=== PATIENT | male | born 1985 | race Two or more races ===

== ENCOUNTER 2024-05-13 16:37 | Emergency (ER) | payer MEDICAID, OTHER ==
[~2024-05-13] VITALS: Ht 185.4 cm; Wt 84.0 kg
[2024-05-13 18:05] VITALS: BP 124/80; TEMP 99.6
[2024-05-13] MEDS: HYDROcodone-ACET 10/325MG TAB PO ONE (18:05)
[2024-05-13 18:23] VITALS: PULSE 90; RESP 16; O2SAT 98
[2024-05-13] MEDS ORDERED: HYDR-4798 PO (19:11)
[2024-05-13] MEDS ORDERED: IBUP-1455 PO (19:11)
== END 2024-05-13 19:47 | disposition home or self-care (01) ==
LOC: ER 16:37
DX: S39.012A Strain of muscle, fascia and tendon of lower back, initial encounter (principal); G89.18 Other acute postprocedural pain; X50.0XXA Overexertion from strenuous movement or load, initial encounter; Y93.89 Activity, other specified; Y92.89 Other specified places as the place of occurrence of the external cause; Y99.8 Other external cause status
CPT/HCPCS: 72100

== ENCOUNTER 2024-11-07 07:47 | Emergency (ER) | payer MEDICAID ==
[~2024-11-07] VITALS: Ht 185.4 cm; Wt 105.4 kg
[~2024-11-07 07:47] MED LIST: HYDR-4798 PO; IBUP-1455 PO
[2024-11-07 08:13] VITALS: BP 138/88; PULSE 88; RESP 18; TEMP 98.1; O2SAT 98
--- NOTE | 2024-11-07 08:31 | ED.PDOC ---
Back pain HPI HPI Comments 38-year-old male with a history of three herniated disc (injury was three years ago) presents with a chief complaint of a flare-up located to the lower back and radiates down the bilateral posterior lower extremities. Symptoms are aggravated with ambulation and improves at rest. 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 States he does a lot more movement that aggravate the back. Patient's PCP is Faith Morrison and also sees pain management Dr. Fred Oakley. Patient had a epidural injection two months ago with minimal improvement. He also takes 300 mg of gabapentin with improvement Denies history of chronic steroid use or history of osteoporosis Denies any history of cancer Denies fevers chills night sweats nausea vomiting unintentional weight loss Denies IV drug use history of HIV/TB Denies abdominal "tearing" pain Denies syncope Denies urinary incontinence or urinary changes Denies numbness tingling of the groin or inner thigh Chief Complaint: Back Pain Time Seen by MD: 08:04 Reviewed Notes: Nurses Notes, Medications, Allergies Allergies: Coded Allergies: NO KNOWN ALLERGIES (Unverified , 05/13/24) Home Meds Active Scripts Ibuprofen Micronized (Ibuprofen) 800 Mg Tab, 800 MG PO Q8HP PRN, #20 TAB Prov:FERNANDA MATHEWS PAC 05/13/24 Hydrocodone-Acetaminophen (Hydrocodone Bitartrate/AC 10-325 mg) 1 Tab Tab, 1 TAB PO Q8HP PRN, #15 TAB Prov:FERNANDA MATHEWS PAC 05/13/24 Information Source: Patient Mode of Arrival: Ambulatory Past Medical History PAST MEDICAL HISTORY: Denies Surgical History: Denies all surgeries Family History Family History: Reviewed,noncontributory to illness, No family hx of Cancer, No family hx of DM, No family hx of Heart randi, No family hx of HTN, No family hx ofKidney randi, No family hx of Liver randi, No family hx of Lung randi, No family hx of Stroke Social History Smoker: Non-Smoker Alcohol: Denies ETOH Use Drugs: Denies Drug Use Lives In: Home All Other Systems: Reviewed and Negative (Per HPI) Physical Exam General Appearance: No Apparent Distress, Normal HEENT: Normal ENT Inspection, Pharynx Normal, TMs Normal Neck: Full Range of Motion, Non-Tender, Normal, Normal Inspection Respiratory: Chest Non-Tender, Lungs Clear, No Accessory Muscle Use, No Respiratory Distress, Normal Breath Sounds Cardiovascular: No Murmur, No Gallop, Regular Rate/Rhythm Breast Exam: Deferred Gastrointestinal: No Organomegaly, Non Tender, No Pulsatile Mass, Normal Bowel Sounds, Soft Genitalia: Deferred Pelvic: Deferred Rectal: Deferred Extremities: No calf tenderness, Normal capillary refill, Normal inspection, Normal range of motion, Non-tender, No pedal edema Musculoskeletal : Apperance: Normal Neurologic: Alert, No Motor Deficits, Normal Affect, Normal Mood, No Sensory Deficits Cerebellar Function: Normal Reflexes: Normal Skin: Dry, Normal Color, Warm Lymphatic: No Adenopathy Was a procedure done? Was a procedure done?: No Images 1 - No gross abnormality on inspection. Localized TTP. Pain with lateral movements forward flexion. Distal neuro sensation intact Back Pain Differential Dx Differential Diagnosis: Musculoskeletal Pain X-Ray, Labs, Meds, VS Vital Signs Date Time Temp Pulse Resp B/P (MAP) Pulse Ox O2 Delivery O2 Flow Rate FiO2 11/07/24 08:13 98.1 88 18 138/88 (105) 98 98.1 11/07/24 08:13 88 18 98 Room Air 11/07/24 07:53 98.0 89 18 138/87 (104) 98 Current Medications Medications (Trade) Dose Ordered Sig/Froilan Route Start Time Stop Time Status Last Admin Acetaminophen/ Hydrocodone Bitart ([place] 10/325MG Tab) 1 tab ONCE ONCE PO 11/07/24 08:30 11/07/24 09:01 DC 11/07/24 09:04 Methylprednisolone Sodium Succinate (Solu Medrol) 125 mg ONCE ONCE IM 11/07/24 08:30 11/07/24 09:01 DC 11/07/24 09:05 X-Ray, Labs, Meds, VS Comment Signs and symptoms suggest mechanical back pain. The episode appears to be exacerbated by movements. The patient's motor strength and DTR's are currently intact. There are no signs or symptoms of cauda equina or cord compression at this time. No evidence of fracture on Xray. Differential diagnoses include muscle strain versus arthralgia versus radicular/disk disease. The differential for an acute vascular, neurologic, malignant, or infectious etiologies is much less likely given his presentation. Patient able to ambulate. The patient will follow up with his PCP to see if their symptoms jerrica. The patient was counseled in regards to the diagnosis and management of their condition and verbalized understanding of this. The patient understands to go to the ED or seek immediate medical attention if the symptoms worsen or return. Time of 1ST Reevaluation: 09:31 Reevaluation 1ST: Improved Patient Education/Counseling: Diagnosis, Treatment Family Education/Counseling: Diagnosis, Treatment Departure 1 Departure Time of Disposition: 09:34 Impression: Primary Impression: Low back strain Qualified Codes: S39.012A - Strain of muscle, fascia and tendon of lower back, initial encounter Disposition: HOME / SELF CARE / HOMELESS Condition: Stable e-Prescriptions Tramadol Hcl (Tramadol Hcl) 50 Mg Tab 50 MG PO Q8HP PRN for 5 Days, #15 TAB 0 Refills Prov: MELBA SAHU NP 11/07/24 Critical Care Note Critical Care Time?: No Stability Stability form required: No Heart Score Heart Score: Heart Score Response (Comments) Value History N/A 0 EKG N/A 0 Age N/A 0 Risk Factors N/A 0 Troponin N/A 0 Total 0 MELBA SAHU NP Nov 07, 2024 08:31
--- NOTE | 2024-11-07 09:03 | DVH ---
INDICATION: chx back pain COMPARISON: None TECHNIQUE: 3 views of the lumbar spine were obtained. FINDINGS: The lumbar vertebral alignment is normal. The intervertebral disc spaces are well-maintained. No significant facet arthropathy is noted. No acute fracture, vertebral compression deformity or aggressive osseous lesions. The paravertebral soft tissues are grossly unremarkable. IMPRESSION: No acute fracture.
[2024-11-07] MEDS: HYDROcodone-ACET 10/325MG TAB PO ONE (09:04)
[2024-11-07] MEDS: methylPREDNISolone SOD SUCC 125 MG/2 ML VL IM ONE (09:05)
[2024-11-07] MEDS ORDERED: TRAM50TA2 PO (09:35)
== END 2024-11-07 09:42 | disposition home or self-care (01) ==
LOC: ER 07:47
DX: S39.012A Strain of muscle, fascia and tendon of lower back, initial encounter (principal); Z79.899 Other long term (current) drug therapy; X58.XXXA Exposure to other specified factors, initial encounter; Y93.89 Activity, other specified; Y92.89 Other specified places as the place of occurrence of the external cause; Y99.8 Other external cause status
CPT/HCPCS: 72100; 96372; 99283; J2919

== ENCOUNTER 2024-12-24 13:44 | Emergency (ER) | payer MEDICAID ==
[~2024-12-24] VITALS: Ht 185.4 cm; Wt 99.2 kg
[~2024-12-24 13:44] MED LIST changes: +TRAM50TA2 PO
[2024-12-24] MEDS ORDERED: MUPI2CRE17 EX (15:21)
[2024-12-24] MEDS ORDERED: CLIN1CAP70 PO (15:21)
--- NOTE | 2024-12-24 15:24 | ED.PDOC ---
History of Present Illness(SKN HPI Comments 39 y.o male presents to the ED for an evaluation of a wound check. Patient reports developing a patch of erythema and swelling to the right posterior scalp region 2-3 days ago that is now associated with a generalized headache. Patient denies any fever, chills, bleeding or discharge from wound site. Patient also denies any recent head trauma. Chief Complaint: Rash Time Seen by MD: 15:16 Primary Care Provider: JOHN History of Present Illness: Nurses Notes, Medications, Allergies Allergies: Coded Allergies: NO KNOWN ALLERGIES (Unverified , 05/13/24) Home Meds Active Scripts Mupirocin Calcium (Topical) (MUPIROCIN) 2 % Cre, 2 % EX BID for 10 Days, #1 EA Prov:VICENTE HUSTON MD 12/24/24 Clindamycin Hcl (Clindamycin Hcl) 300 Mg Cap, 1 CAP PO BID for 10 Days, #20 CAP Prov:VICENTE HUSTON MD 12/24/24 Tramadol Hcl (Tramadol Hcl) 50 Mg Tab, 50 MG PO Q8HP PRN for 5 Days, #15 TAB 0 Refills Prov:MELBA SAHU SPINNER OPERATOR 11/07/24 Ibuprofen Micronized (Ibuprofen) 800 Mg Tab, 800 MG PO Q8HP PRN, #20 TAB Prov:FERNANDA MATHEWS PAC 05/13/24 Hydrocodone-Acetaminophen (Hydrocodone Bitartrate/AC 10-325 mg) 1 Tab Tab, 1 TAB PO Q8HP PRN, #15 TAB Prov:FERNANDA MATHEWS PAC 05/13/24 Information Source: Patient Mode of Arrival: cane Severity: Moderate Timing: Days Duration: Since onset Location: Head Mechanism: Spontaneous Onset Object: None Wound Type: Other History of: None Associated Signs and Symptoms: Redness, Swelling Past Medical History PAST MEDICAL HISTORY: Denies Surgical History: Denies all surgeries Family History Family History: Reviewed,noncontributory to illness, No family hx of Cancer, No family hx of DM, No family hx of Heart randi, No family hx of HTN, No family hx ofKidney randi, No family hx of Liver randi, No family hx of Lung randi, No family hx of Stroke Social History Smoker: Non-Smoker Alcohol: Denies ETOH Use Drugs: Denies Drug Use Lives In: Home Constitutional: denies: chills, diaphoresis, fatigue, fever, malaise, sweats, weakness, others EENTM: denies: blurred vision, double vision, ear bleeding, ear discharge, ear drainage, ear pain, ear ringing, eye pain, eye redness, hearing loss, mouth pain, mouth swelling, nasal discharge, nose bleeding, nose congestion, nose pain, photophobia, tearing, throat pain, throat swelling, voice changes, others Respiratory: denies: cough, hemoptysis, orthopnea, SOB at rest, shortness of breath, SOB with excertion, stridor, wheezing, others Cardiovascular: denies: chest pain, dizzy spells, diaphoresis, Dyspnea on exertion, edema, irregular heart beat, left arm pain, lightheadedness, palpitations, PND, syncope, others Gastrointestinal: denies: abdomen distended, abdominal pain, blood streaked bowels, constipated, diarrhea, dysphagia, difficulty swallowing, hematemesis, melena, nausea, poor appetite, poor fluid intake, rectal bleeding, rectal pain, vomiting, others Genitourinary: denies: burning, dysuria, flank pain, frequency, hematuria, incontinence, penile discharge, penile sore, pain, testicle pain, testicle swelling, urgency, others Neurological: reports: headache; denies: dizziness, fainting, left sided numbness, left sided weakness, numbness, paresthesia, pre-existing deficit, right sided numbness, right sided weakness, seizure, speech problems, tingling, tremors, weakness, others Musculoskeletal: denies: back pain, gout, joint pain, joint swelling, muscle pain, muscle stiffness, neck pain, others Integumetry: reports: others (right sided posterior head erythema and swelling ); denies: bruises, change in color, change in hair/nails, dryness, laceration, lesions, lumps, rash, wounds Allergic/Immunocompromised: denies: Difficulty Healing, Frequent Infections, Hives, Itching, others Hematologic/Lymphatic: denies: anemia, blood clots, easy bleeding, easy bruising, swollen glands, others Endocrine: denies: excessive hunger, excessive sweating, excessive thirst, excessive urination, flushing, intolerance to cold, intolerance to heat, unexplained weight gain, unexplained weight loss, others Psychiatric: denies: anxiety, bipolar disorder, depression, hopeless, panic d isorder, schizophrenia, sleepless, suicidal, others All Other Systems: Reviewed and Negative Physical Exam General Appearance: No Apparent Distress, Normal HEENT: Normal ENT Inspection, Pharynx Normal, TMs Normal Neck: Other (rigth sided cervical, one lymph node swelling ) Respiratory: Chest Non-Tender, Lungs Clear, No Accessory Muscle Use, No Respiratory Distress, Normal Breath Sounds Cardiovascular: No Edema, No JVD, No Murmur, No Gallop, Normal Peripheral Pulses, Regular Rate/Rhythm Breast Exam: Deferred Gastrointestinal: No Organomegaly, Non Tender, No Pulsatile Mass, Normal Bowel Sounds, Soft Genitalia: Deferred Pelvic: Deferred Rectal: Deferred Extremities: No calf tenderness, Normal capillary refill, Normal inspection, Normal range of motion, Non-tender, No pedal edema Musculoskeletal : Apperance: Normal Neurologic: Alert, ambulance assistant II-XII nml as Tested, No Motor Deficits, Normal Affect, Normal Mood, No Sensory Deficits Cerebellar Function: Normal Reflexes: Normal Skin: Wounds (erythema and swelling to the right posterior scalp) Lymphatic: No Adenopathy Was a procedure done? Was a procedure done?: No Differential Diagnosis (INTG) Differential Diagnosis: Abrasion, Cellulitis, Puncture Wound X-Ray, Labs, Meds, VS Vital Signs Date Time Temp Pulse Resp B/P (MAP) Pulse Ox O2 Delivery O2 Flow Rate FiO2 12/24/24 15:53 97.6 87 20 138/67 (90) 99 97.6 12/24/24 15:53 87 20 12/24/24 13:47 99.2 94 20 142/92 (109) 98 99.2 Current Medications Medications (Trade) Dose Ordered Sig/Froilan Route Start Time Stop Time Status Last Admin Clindamycin HCl (Cleocin Capsule) 300 mg ONCE ONCE PO 12/24/24 15:30 12/24/24 15:31 DC 12/24/24 15:50 Time of 1ST Reevaluation: 15:20 Reevaluation 1ST: Unchanged Patient Education/Counseling: Diagnosis, Treatment, Prognosis Family Education/Counseling: No Family Present Departure 1 Departure Time of Disposition: 16:30 Impression: Primary Impression: Cellulitis of occipital region of scalp Disposition: 01 HOME / SELF CARE / HOMELESS Condition: Stable e-Prescriptions Mupirocin Calcium (Topical) (MUPIROCIN) 2 % Cre 2 % EX BID for 10 Days, #1 EA Prov: VICENTE HUSTON MD 12/24/24 Clindamycin Hcl (Clindamycin Hcl) 300 Mg Cap 1 CAP PO BID for 10 Days, #20 CAP Prov: VICENTE HUSTON MD 12/24/24 Discharged With: Self Critical Care Note Critical Care Time?: No Stability Stability form required: No I personally scribed for VICENTE HUSTON MD ([email or web address]) on 12/24/24 at 15:24. Electronically submitted by Cat Voss ([facility]). VICENTE HUSTON MD Dec 24, 2024 15:24
[2024-12-24] MEDS: CLINDAMYCIN HCL 150 MG CAP PO ONE (15:50)
[2024-12-24 15:53] VITALS: BP 138/67; PULSE 87; RESP 20; TEMP 97.6; O2SAT 99
== END 2024-12-24 15:56 | disposition home or self-care (01) ==
LOC: ER 13:44
DX: L03.811 Cellulitis of head [any part, except face] (principal); Z79.899 Other long term (current) drug therapy

== ENCOUNTER 2025-05-10 14:58 | Inpatient (IN) | payer MEDICAID ==
[~2025-05-10] VITALS: Ht 185.4 cm; Wt 111.2 kg
[~2025-05-10 14:58] MED LIST changes: +CLIN1CAP70 PO; +MUPI2CRE17 EX
--- NOTE | 2025-05-10 15:57 | ED.PDOC ---
GI ASSESSMENT HPI Comments This is a morbidly obese 39 year old male presenting to the ED with chief complaint of significant rectal pain for the past few days.. Patient reports that he had sudden explosive diarrhea 2 days ago then soon after followed up with associated right sided rectal pain and subjective fever. Patient relays that his rectum and surrounding areas are still exquisitely tender. Patient notes he walks with a walker due to chronic back pain. Patient denies any N/V, abdominal pain, chills, or rectal bleeding. Patient was hypertensive, tachycardic and had an elevated temperature at arrival. Chief Complaint: Rectal Pain Time Seen by MD: 15:49 Primary Care Provider: JOHN Ferraro Notes: Nurses Notes, Medications, Allergies Allergies: Coded Allergies: NO KNOWN ALLERGIES (Unverified , 05/13/24) Home Meds Active Scripts Mupirocin Calcium (Topical) (MUPIROCIN) 2 % Cre, 2 % EX BID for 10 Days, #1 EA Prov:VICENTE HUSTON MD 12/24/24 Clindamycin Hcl (Clindamycin Hcl) 300 Mg Cap, 1 CAP PO BID for 10 Days, #20 CAP Prov:VICENTE HUSTON MD 12/24/24 Tramadol Hcl (Tramadol Hcl) 50 Mg Tab, 50 MG PO Q8HP PRN for 5 Days, #15 TAB 0 Refills Prov:MELBA SAHU MITER OPERATOR 11/07/24 Ibuprofen Micronized (Ibuprofen) 800 Mg Tab, 800 MG PO Q8HP PRN, #20 TAB Prov:FERNANDA MATHEWS PAC 05/13/24 Hydrocodone-Acetaminophen (Hydrocodone Bitartrate/AC 10-325 mg) 1 Tab Tab, 1 TAB PO Q8HP PRN, #15 TAB Prov:FERNANDA MATHEWS PAC 05/13/24 Information Source: Patient Mode of Arrival: Wheelchair Timing: Days Duration: Since onset Prehospital treatment: None Quality: Aching Vomitus: None Stool: Loose Severity: Severe Recent: None Recent Hx of: None Pain Location: Other (Left-sided rectum and gluteal region) Modifying Factors: Nothing Associated sign and symptoms: Diarrhea Past Medical History PAST MEDICAL HISTORY: Denies Surgical History: Denies all surgeries Surgical History (Other): Patient ambulates with a walker Family History Family History: Reviewed,noncontributory to illness, No family hx of Cancer, No family hx of DM, No family hx of Heart randi, No family hx of HTN, No family hx ofKidney randi, No family hx of Liver randi, No family hx of Lung randi, No family hx of Stroke Social History Smoker: Non-Smoker Alcohol: Denies ETOH Use Drugs: Denies Drug Use Lives In: Home Constitutional: denies: chills, diaphoresis, fatigue, fever, malaise, sweats, weakness, others EENTM: denies: blurred vision, double vision, ear bleeding, ear discharge, ear drainage, ear pain, ear ringing, eye pain, eye redness, hearing loss, mouth pain, mouth swelling, nasal discharge, nose bleeding, nose congestion, nose pain, photophobia, tearing, throat pain, throat swelling, voice changes, others Respiratory: denies: cough, hemoptysis, orthopnea, SOB at rest, shortness of breath, SOB with excertion, stridor, wheezing, others Cardiovascular: denies: chest pain, dizzy spells, diaphoresis, Dyspnea on exertion, edema, irregular heart beat, left arm pain, lightheadedness, palpitations, PND, syncope, others Gastrointestinal: reports: diarrhea, rectal pain; denies: abdomen distended, abdominal pain, blood streaked bowels, constipated, dysphagia, difficulty swallowing, hematemesis, melena, nausea, poor appetite, poor fluid intake, rectal bleeding, vomiting, others Genitourinary: denies: burning, dysuria, flank pain, frequency, hematuria, incontinence, penile discharge, penile sore, pain, testicle pain, testicle swelling, urgency, others Neurological: denies: dizziness, fainting, headache, left sided numbness, left sided weakness, numbness, paresthesia, pre-existing deficit, right sided numbness, right sided weakness, seizure, speech problems, tingling, tremors, weakness, others Musculoskeletal: denies: back pain, gout, joint pain, joint swelling, muscle pain, muscle stiffness, neck pain, others Integumetry: denies: bruises, change in color, change in hair/nails, dryness, laceration, lesions, lumps, rash, wounds, others Allergic/Immunocompromised: denies: Difficulty Healing, Frequent Infections, Hives, Itching, others Hematologic/Lymphatic: denies: anemia, blood clots, easy bleeding, easy bruising, swollen glands, others Endocrine: denies: excessive hunger, excessive sweating, excessive thirst, excessive urination, flushing, intolerance to cold, intolerance to heat, unexplained weight gain, unexplained weight loss, others Psychiatric: denies: anxiety, bipolar disorder, depression, hopeless, panic disorder, schizophrenia, sleepless, suicidal, others All Other Systems: Reviewed and Negative Physical Exam General Appearance: Moderate Distress (Moderate distress due to rectal and gluteal pain) HEENT: Normal ENT Inspection, Pharynx Normal, TMs Normal Neck: Full Range of Motion, Non-Tender, Normal, Normal Inspection Respiratory: Chest Non-Tender, Lungs Clear, No Accessory Muscle Use, No Resp iratory Distress, Normal Breath Sounds Cardiovascular: No Edema, No JVD, No Murmur, No Gallop, Normal Peripheral Pulses, Regular Rate/Rhythm Breast Exam: Deferred Gastrointestinal: No Organomegaly, Non Tender, No Pulsatile Mass, Normal Bowel Sounds, Soft Genitalia: Deferred Pelvic: Deferred Rectal: Other (Patient has a large crescent shaped area of induration to the left-sided gluteal region near the rectum. Exquisitely tender to palpation throughout. Localized erythema. 0 points of drainage or discharge.) Extremities: No calf tenderness, Normal capillary refill, Normal inspection, Normal range of motion, Non-tender, No pedal edema Musculoskeletal : Apperance: Normal Neurologic: Alert, No Motor Deficits, Normal Affect, Normal Mood, No Sensory Deficits Cerebellar Function: NOT DONE Reflexes: NOT DONE Skin: Dry, Normal Color, Warm Lymphatic: No Adenopathy Was a procedure done? Was a procedure done?: No GI differential Dx Differential Diagnosis: Other (Abscess, phlegmon, cellulitis, hemorrhoids) X-Ray, Labs, Meds, VS Vital Signs Date Time Temp Pulse Resp B/P (MAP) Pulse Ox O2 Delivery O2 Flow Rate FiO2 05/10/25 17:08 98.1 102 16 114/57 (76) 98 98.1 05/10/25 17:04 102 16 114/57 05/10/25 16:16 110 19 123/81 05/10/25 16:10 98.6 110 19 123/81 (95) 98 98.6 05/10/25 16:10 110 19 98 Room Air 05/10/25 15:00 99.8 120 18 148/86 99 99.8 Lab Test 05/10/25 15:56 Range/Units White Blood Count 11.5 H 4.4-10.8 10^3/uL Red Blood Count 4.93 4.5-5.90 10^6/uL Hemoglobin 14.9 13.5-17.5 g/dL Hematocrit 42.7 41.0-53.0 % Mean Corpuscular Volume 86.5 80.0-100.0 fL Mean Corpuscular Hemoglobin 30.3 28.0-32.0 pg Mean Corpuscular Hemoglobin Concent 35.0 32.0-36.0 g/dL Red Cell Distribution Width 14.3 11.8-14.3 % Platelet Count 228 140-450 10^3/uL Mean Platelet Volume 8.5 6.9-10.8 fL Neutrophils (%) (Auto) 76.8 37.0-80.0 % Lymphocytes (%) (Auto) 13.8 10.0-50.0 % Monocytes (%) (Auto) 8.6 0.0-12.0 % Eosinophils (%) (Auto) 0.3 0.0-7.0 % Basophils (%) (Auto) 0.5 0.0-2.0 % Neutrophils # (Auto) 8.9 H 1.6-8.6 10 ^3/uL Lymphocytes # (Auto) 1.6 0.4-5.4 10 ^3/uL Monocytes # (Auto) 1.0 0-1.3 10 ^3/uL Eosinophils # (Auto) 0 0-0.8 10 ^3/uL Basophils # (Auto) 0.1 0-0.2 10 ^3/uL Nucleated Red Blood Cells 0.0 % Sodium Level 139 136-145 mmol/L Potassium Level 3.5 3.5-5.1 mmol/L Chloride Level 106 98-107 mmol/L Carbon Dioxide Level 23 20-31 mmol/L Anion Gap 10 5-15 Blood Urea Nitrogen 7 L 9-23 mg/dL Creatinine 0.85 0.700-1.30 mg/dL Glomerular Filtration Rate Calc 113 >90 mL/min BUN/Creatinine Ratio 8.2 L 10.0-20.0 Serum Glucose 100 74-106 mg/dL Calcium Level 9.4 8.7-10.4 mg/dL Current Medications Medications (Trade) Dose Ordered Sig/F[place]ilan Route Start Time Stop Time Status Last Admin Hydromorphone HCl (Dilaudid Injection) 0.5 mg ONCE ONCE IV 05/10/25 15:45 05/10/25 15:46 DC 05/10/25 16:16 Ondansetron HCl (Zofran) 4 mg ONCE ONCE IV 05/10/25 15:45 05/10/25 15:46 DC 05/10/25 16:15 X-Ray, Labs, Meds, VS Comment All studies performed the ED were evaluated by me personally. While serum laboratories were relatively unremarkable for any acute concerns. CT with contrast of the abdomen and pelvis revealed a localized inflammation of the left perianal region suggestive of a phlegmon. No definitive abscess is identified. Due to the exquisite tenderness and size of the area of induration, patient will be admitted for pain management and IV antibiotics to stave off any significant abscess formation. Time of 1ST Reevaluation: 19:40 Reevaluation 1ST: Improved Consultation: PCP Patient Education/Counseling: Diagnosis, Treatment Family Education/Counseling: Diagnosis, Treatment, No Family Present SEPSIS Sepsis Screen Date sepsis recognized/suspect: May 10, 2025 Time Sepsis recognized/suspect: 1501 Recent Procedure: No On Antibiotic Therapy: No Respiratory Rate >20: No Heart Rate >90: Yes Temp<36 C (96.8 F) or >38.3 C: No SBP <90 or MAP <65 mmHG: No New Acute Mental Status Change: No Is the patient on CPAP, BIPAP,: No Physician Orders Ct Ab Pel With Iv Con Only (05/10/25 15:31) Heplock Iv (05/10/25 ) Zosyn Extended Infusion (05/10/25 19:45) Vital Signs Date Time Temp Pulse Resp B/P (MAP) Pulse Ox O2 Delivery O2 Flow Rate FiO2 05/10/25 17:08 98.1 102 16 114/57 (76) 98 98.1 05/10/25 17:04 102 16 114/57 05/10/25 16:16 110 19 123/81 05/10/25 16:10 98.6 110 19 123/81 (95) 98 98.6 05/10/25 16:10 110 19 98 Room Air 05/10/25 15:00 99.8 120 18 148/86 99 99.8 Laboratory Tests Test 05/10/25 15:56 White Blood Count 11.5 10^3/uL (4.4-10.8) H Medications Medications Dose Ordered Sig/Froilan Route Start Time Stop Time Status Last Admin Dose Admin Hydromorphone HCl 0.5 mg ONCE ONCE IV 05/10/25 15:45 05/10/25 15:46 DC 05/10/25 16:16 Ondansetron HCl 4 mg ONCE ONCE IV 05/10/25 15:45 05/10/25 15:46 DC 05/10/25 16:15 Departure 1 Departure Time of Disposition: 19:41 Impression: Primary Impression: Phlegmon Disposition: ADMITTED INPATIENT Condition: Fair Discharged With: Self, Spouse Critical Care Note Critical Care Time?: No Stability Stability form required: No Heart Score Heart Score: Heart Score Response (Comments) Value History N/A 0 EKG N/A 0 Age N/A 0 Risk Factors N/A 0 Troponin N/A 0 Total 0 I personally scribed for FERNANDA MATHEWS PAC ([email or web address]) on 05/10/25 at 15:57. Electronically submitted by Chun Aguilera ([email or web address]). FERNANDA MATHEWS PAC May 10, 2025 15:57
[2025-05-10] MEDS: ONDANSETRON HCL 4 MG/2 ML VIAL IV ONE ×2 (16:15→19:37)
[2025-05-10] MEDS: HYDROmorphone HCL 2 MG/ML VL/or syr IV ONE ×2 (16:16→19:38)
[2025-05-10 16:18] LABS: Hematocrit 42.7 % (41.0-53.0); Hemoglobin 14.9 g/dL (13.5-17.5); Mean Corpuscular Hemoglobin 30.3 pg (28.0-32.0); Mean Corpuscular Volume 86.5 fL (80.0-100.0); Nucleated Red Blood Cells % 0.0 %
[2025-05-10 16:22] LABS: Chloride 106 mmol/L (98-107); Sodium 139 mmol/L (136-145)
[2025-05-10 16:23] LABS: Anion Gap 10 (5-15); Carbon Dioxide 23 mmol/L (20-31)
[2025-05-10 16:24] LABS: Calcium 9.4 mg/dL (8.7-10.4)
[2025-05-10 16:28] LABS: BUN/Creatinine Ratio 8.2 (10.0-20.0); Glucose 100 mg/dL (74-106)
[2025-05-10 16:47] LABS: Blood Urea Nitrogen 7 mg/dL (9-23); Potassium 3.5 mmol/L (3.5-5.1)
[2025-05-10] MEDS: IOHEXOL 300 MG/ML 100ML BOTTLE IJ ONE (17:06)
--- NOTE | 2025-05-10 18:50 | DVH ---
COMPUTERIZED TOMOGRAPHY ABDOMEN AND PELVIS WITH CONTRAST REASON FOR EXAM: Abscess formation on the right gluteal region/rectum COMPARISON: None TECHNIQUE: The exam was performed on a Multidetector scanner. Spiral scans were acquired from the chaya phragm to the symphysis pubis after administration of IV contrast. 2-D coronal and sagittal reformatt ed images were provided. Radiation optimization: All CT scans at this facility use at least one of th kevin dose optimization techniques: Automated exposure control mA and/or kV adjustment per patient size (includes targeted exams where dose is matched to clinical indication) or iterative reconstruction. CONTRAST ADMINISTRATION: 85 mL omnipaque 300 intravenously RADIATION DOSE: CTDI: 20.45 mGy DLP: 1362.93 mGy-cm FINDINGS: The visualized lung bases are grossly clear. There is no pleural effusion. There is no pericardial e ffusion. The spleen is not enlarged. The liver is normal in size and contour. The hepatic veins are patent. The portal vein is patent. No calcified gallstone is identified. There is no pericholecystic edema. T he pancreas is unremarkable. The adrenal glands are normal. The kidneys enhance symmetrically. There is no solid renal mass. There is no hydronephrosis of either kidney. There is no abdominal aortic ane urysm. No pathologic lymphadenopathy is identified by size criteria. There is no free fluid in the a bdomen or pelvis. The prostate is enlarged. The urinary bladder is unremarkable. There is no signifi cant colonic stool burden. The appendix is normal. There is no distention of the small bowel. There is skin thickening and subcutaneous fat stranding in the left perianal region. No fluid collection i s identified. The inflammatory change appears limited to the perianal region and does not ascend to t he level of the levator ani muscles no acute osseous abnormality is identified. There is a metallic d ensity in the anterior left thigh musculature with the appearance of a retained projectile. IMPRESSION: Localized inflammation in the left perianal region suggestive of phlegmon. No abscess is identified.
[2025-05-10] MEDS: PIPERACILLIN-TAZOB 3.375GM 100 ML IV ONE (19:48)
[2025-05-10] MEDS ORDERED: ONDANSETRON HCL 4 MG/2 ML VIAL IV PRN (22:30)
--- NOTE | 2025-05-10 23:11 | DVHHPRES ---
History of Present Illness Resident Creating Document: ANISH PULIDO RESIDENT History of Present Illness Jayy Perez is a 39-year-old male, with past medical history of GERD and lumbar disc herniation. The patient came to the ED with chief complaint of 5 days of rectal pain 7/10, continue, burning-like type, that increases by standing or walking and improves at rest, associated with chills and subjective fever. The patient reports prior to the rectal pain pain he had a sudden episode of explosive diarrhea #5. Today, the pain increased to 9-10/10, with swelling of the rectal area. The patient denies abdominal pain, recent travel, or previous hemorrhoids diagnosis. On the ED the patient was found tachycardic 101 bpm, the WBC os 11.5 x10e3/ul and 99.1 F. The abd/pelv CT scan showed: a localized inflammation of the left perianal region suggestive of a phlegmon. Patient will be admitted for antibiotic, pain control and further management. GI: GERD Musculoskeletal: Chronic low back pain (Herniated discs. ) Past Surgical History: None Family History: None Smoke: No ALCOHOL: none Drugs: Marijuana (Occassional ) Lives: with Family Review of Systems Constitutional: Yes: Fever, Chills, Malaise; No: Sweats, Weakness, Other Eyes: No: Pain, Vision change, Conjunctivae inflammation, Eyelid inflammation, Other, Redness ENT: No: Ear pain, Ear discharge, Nose pain, Nose discharge, Nose congestion, Mouth pain, Mouth swelling, Throat pain, Throat swelling, Other Respiratory: No: Cough, Dry, Shortness of breath, SOB with excertion, Wheezing, Hemoptysis, Pleuritic Pain, Sputum, Wheezing, Other Cardiovascular: No: Chest Pain, Palpitations, Orthopnea, Paroxysmal Noc. Dyspnea, Edema, Lt Headedness, Other Gastrointestinal: Nausea, Diarrhea, Other (Perianal pain.); No: Vomiting, Abdominal Pain, Constipation, Melena, Hematochezia Genitourinary: No Dysuria, No Frequency, No Incontinence, No Hematuria, No Retention, No Other Musculoskeletal: No: other, neck pain, shoulder pain, arm pain, back pain, hand pain, leg pain, foot pain Skin: No: Rash, Lesions, Jaundice, Bruising, Other Neurological: No: Weakness, Numbness, Incoordination, Change in speech, Confusion, Seizures, Other Other Rectal pain Allergies: Coded Allergies: NO KNOWN ALLERGIES (Unverified , 05/13/24) Medications Current Medications Medications Dose Ordered Sig/Froilan Route Start Time Stop Time Status Last Admin Dose Admin Acetaminophen/ Hydrocodone Bitart 1 tab Q4HP PRN PO 05/10/25 22:30 UNV Ondansetron HCl 4 mg Q4HP PRN IV 05/10/25 22:30 UNV Morphine Sulfate 2 mg Q4HPRN PRN IV 05/10/25 22:30 UNV Enoxaparin Sodium 40 mg DAILY SC 05/11/25 10:00 UNV Pantoprazole Sodium 40 mg DAILY PO 05/11/25 10:00 UNV Gabapentin 100 mg TID PO 05/11/25 06:00 UNV Metronidazole 100 ml @ 100 mls/hr TID IV 05/11/25 06:00 UNV Piperacillin Sod/ Tazobactam Sod 50 ml @ 50 mls/hr Q6HR IV 05/11/25 00:00 UNV Exam Vital Signs Vital Signs Date Time Temp Pulse Resp B/P (MAP) Pulse Ox O2 Delivery O2 Flow Rate FiO2 05/10/25 22:12 98.8 99 16 120/65 (83) 98 98.8 05/10/25 16:10 Room Air Exam Rectal examination: Rectal exam was perform after obtaining patient's consent. There is erythema, warmth, swelling and induration on the left buttock that extends to the internal part of the same buttock. There is exquisite tenderness over palpation of the left buttock. On rectal exam there is no external hemorrhoids, no active bleeding or discharge, there is tenderness and swelling. General Appearance: Alert, Oriented X3, Cooperative, moderate distress HEENT: Atraumatic, Mucous membr. moist/pink Respiratory: Clear to auscultation, Normal air movement Cardiovascular: Regular rate, Normal S1, Normal S2, No murmurs Abdominal: Normal bowel sounds, Soft, No tenderness, No hepatospenomegaly, No masses Extremities: No clubbing, No cyanosis, No edema, Normal pulses Skin: No rashes, No breakdown, No significant lesion Neuro: Normal gait, Normal speech, Strength at 5/5 X4 ext, Normal tone, Sensation intact Psych/Mental Status: Mental status NL, Mood NL Labs/Xrays Labs Test 05/10/25 15:56 Range/Units White Blood Count 11.5 H 4.4-10.8 10^3/uL Red Blood Count 4.93 4.5-5.90 10^6/uL Hemoglobin 14.9 13.5-17.5 g/dL Hematocrit 42.7 41.0-53.0 % Mean Corpuscular Volume 86.5 80.0-100.0 fL Mean Corpuscular Hemoglobin 30.3 28.0-32.0 pg Mean Corpuscular Hemoglobin Concent 35.0 32.0-36.0 g/dL Red Cell Distribution Width 14.3 11.8-14.3 % Platelet Count 228 140-450 10^3/uL Mean Platelet Volume 8.5 6.9-10.8 fL Neutrophils (%) (Auto) 76.8 37.0-80.0 % Lymphocytes (%) (Auto) 13.8 10.0-50.0 % Monocytes (%) (Auto) 8.6 0.0-12.0 % Eosinophils (%) (Auto) 0.3 0.0-7.0 % Basophils (%) (Auto) 0.5 0.0-2.0 % Neutrophils # (Auto) 8.9 H 1.6-8.6 10 ^3/uL Lymphocytes # (Auto) 1.6 0.4-5.4 10 ^3/uL Monocytes # (Auto) 1.0 0-1.3 10 ^3/uL Eosinophils # (Auto) 0 0-0.8 10 ^3/uL Basophils # (Auto) 0.1 0-0.2 10 ^3/uL Nucleated Red Blood Cells 0.0 % Sodium Level 139 136-145 mmol/L Potassium Level 3.5 3.5-5.1 mmol/L Chloride Level 106 98-107 mmol/L Carbon Dioxide Level 23 20-31 mmol/L Anion Gap 10 5-15 Blood Urea Nitrogen 7 L 9-23 mg/dL Creatinine 0.85 0.700-1.30 mg/dL Glomerular Filtration Rate Calc 113 >90 mL/min BUN/Creatinine Ratio 8.2 L 10.0-20.0 Serum Glucose 100 74-106 mg/dL Calcium Level 9.4 8.7-10.4 mg/dL SEPSIS Sepsis Screen Date sepsis recognized/suspect: May 10, 2025 Time Sepsis recognized/suspect: 1501 Recent Procedure: No On Antibiotic Therapy: No Respiratory Rate >20: No Heart Rate >90: Yes Temp<36 C (96.8 F) or >38.3 C: No SBP <90 or MAP <65 mmHG: No New Acute Mental Status Change: No Is the patient on CPAP, BIPAP,: No Physician Orders Ct Ab Pel With Iv Con Only (05/10/25 15:31) Heplock Iv (05/10/25 ) Admit (05/10/25 22:20) Code Status (05/10/25 22:20) Vital Signs .PER UNIT PROTOCOL (05/10/25 22:20) Review Orders With Adm.Md (05/10/25 22:20) Bedside Commode (05/10/25 22:20) Notify Md Of Changes From Base (05/10/25 22:20) Advance Directive (05/10/25 22:20) Basic Metabolic Panel (05/11/25 04:00) Urinalysis (05/10/25 22:20) Complete Blood Count (05/11/25 04:00) Patient Condition (05/10/25 22:20) Allergies (05/10/25 22:20) Hydrocodone-Acet 5/325mg Tab (Doyline 5/32 (05/10/25 22:30) Ondansetron Hcl (Zofran) (05/10/25 22:30) Morphine Sulfate Injection (05/10/25 22:30) Enoxaparin Sodium (Lovenox) (05/11/25 10:00) Notify Md Of Changes From Base (05/10/25 22:20) Pantoprazole Tablet (Protonix Tablet) (05/11/25 10:00) Gabapentin Capsule (Neurontin Capsule) (05/11/25 06:00) Stool Occult Blood (05/10/25 22:20) Metronidazole 500mg/100ml (Flagyl 500mg/ (05/11/25 06:00) Piperacillin-Tazob 2.25gm (Zosyn 2.25gm) (05/11/25 00:00) Stool Bacterial Culture (05/10/25 22:20) Drug Screen (05/10/25 22:20) Covid19 Antigen Neda (05/10/25 ) Rapid Influenza A&B (05/10/25 22:20) Npo (Nothing By Mouth) Diet (05/11/25 Breakfast) Vital Signs Date Time Temp Pulse Resp B/P (MAP) Pulse Ox O2 Delivery O2 Flow Rate FiO2 05/10/25 22:12 98.8 99 16 120/65 (83) 98 98.8 05/10/25 20:00 72 18 118/68 05/10/25 19:42 99.1 101 16 118/68 (85) 98 99.1 05/10/25 19:38 101 16 118/68 05/10/25 17:08 98.1 102 16 114/57 (76) 98 98.1 05/10/25 17:04 102 16 114/57 05/10/25 16:16 110 19 123/81 05/10/25 16:10 98.6 110 19 123/81 (95) 98 98.6 05/10/25 16:10 110 19 98 Room Air 05/10/25 15:00 99.8 120 18 148/86 99 99.8 Laboratory Tests Test 05/10/25 15:56 White Blood Count 11.5 10^3/uL (4.4-10.8) H Medications Medications Dose Ordered Sig/Froilan Route Start Time Stop Time Status Last Admin Dose Admin Hydromorphone HCl 0.5 mg ONCE ONCE IV 05/10/25 15:45 05/10/25 15:46 DC 05/10/25 16:16 0.5 MG Hydromorphone HCl 1 mg ONCE ONCE IV 05/10/25 19:00 05/10/25 19:01 DC 05/10/25 19:38 1 MG Ondansetron HCl 4 mg ONCE ONCE IV 05/10/25 15:45 05/10/25 15:46 DC 05/10/25 16:15 4 MG Ondansetron HCl 4 mg ONCE ONCE IV 05/10/25 19:00 05/10/25 19:01 DC 05/10/25 19:37 4 MG Piperacillin Sod/ Tazobactam Sod 100 ml @ 100 mls/hr ONCE ONCE IV 05/10/25 19:45 05/10/25 20:44 DC 05/10/25 19:48 100 MLS/HR Assessment/Plan Assessment/Plan #Intractable perianal pain. #Rule out Perianal Phlegmon vs perianal abscess #Sepsis Tachycardia, Fever, Leukocytosis CT abdomen/Pelvis IV fluids: NS Zocyn IV Morphine 2mg IV Ketorolac 30mg IV Blood culture Surgical consult #GERD Pantoprazole 40mg po #Hx Herniated lumbar discs Gabapentin 100mg po TID #Obesity Life style changes counselling Regular diet DVT prophylaxis- ambulating. PUD prophylaxis Protonic. Goals of care discussed with the patient > 35 min. Discussed plan of care with Dr. Barber Code status: Full code PCP: Dr. Carlo Suresh Plan discussed with: Patient, the patient agrees with the admission plan. Plan discussed with: Patient, Spouse My Orders Orders - ANISH PULIDO RESIDENT Procedure Category Date Status Time Admit ADMIT 05/10/25 Transmitted 22:20 Code Status CODE 05/10/25 Transmitted 22:20 Vital Signs [facility] 05/10/25 In Process 22:20 Review Orders With [facility] 05/10/25 In Process Adm. 22:20 Bedside Commode [facility] 05/10/25 In Process 22:20 Notify Of Changes [facility] 05/10/25 In Process From Base 22:20 Advance Directive [facility] 05/10/25 In Process 22:20 Basic Metabolic Panel LAB 05/11/25 Verified 04:00 Urinalysis LAB 05/10/25 Logged 22:20 Complete Blood Count LAB 05/11/25 Verified 04:00 Patient Condition ORDERS 05/10/25 Transmitted 22:20 Allergies DIDIER 05/10/25 In Process 22:20 Hydrocodone-Acet PHA 05/10/25 Logged 5/325mg Tab (Doyline 22:30 Ondansetron Hcl PHA 05/10/25 Logged (Zofran) 22:30 Morphine Sulfate PHA 05/10/25 Logged Injection 22:30 Enoxaparin Sodium PHA 05/11/25 Logged (Lovenox) 10:00 Notify Of Changes [facility] 05/10/25 In Process From Base 22:20 Pantoprazole Tablet PHA 05/11/25 Logged (Protonix Tablet) 10:00 Gabapentin Capsule PHA 05/11/25 Logged (Neurontin Capsule) 06:00 Stool Occult Blood LAB 05/10/25 Logged 22:20 Metronidazole PHA 05/11/25 Logged 500mg/100ml (Flagyl 06:00 Piperacillin-Tazob PHA 8/15/25 Logged 2.25gm (Zosyn 2.25gm) 00:00 Stool Bacterial TONA 05/10/25 Logged Culture 22:20 Drug Screen LAB 05/10/25 Logged 22:20 Covid19 Antigen Neda LAB 05/10/25 Logged Rapid Influenza A&B LAB 05/10/25 Logged 22:20 Npo (Nothing By DIET 05/11/25 Transmitted Mouth) Diet Breakfast Date of Service: May 10, 2025 Billing Provider: SHANTI BARBER MD Common Visit Codes: [id number] INP/OBS CARE (HIGH) Secondary Visit Codes: [id number] CARE PLAN 30 MINUTES ANISH PULIDO RESIDENT May 10, 2025 23:11
[2025-05-11] VITALS (8 sets, daily range): BP systolic 106–135; BP diastolic 66–93; PULSE 80–99; RESP 16–20; TEMP 97.7–99.8; O2SAT 97–99
[2025-05-11] MEDS ORDERED: PIPERACILLIN-TAZOB 2.25GM 50 ML IV SCH
[2025-05-11 01:30] LABS: COVID19 ANTIGEN SOFIA FIA NEGATIVE (NEGATIVE)
[2025-05-11] MEDS ORDERED: KETOROLAC TROMETH 30 MG/ML 1ML VIAL IV PRN (02:00)
[2025-05-11] MEDS: MORPHINE SULFATE INJ 2 MG/ml SYRG IV PRN (02:44)
[2025-05-11] MEDS: SODIUM CHLORIDE 0.9% 1,000 ML IV SCH (03:30)
[2025-05-11] MEDS: HYDROcodone-ACET 5/325MG TAB PO PRN (05:28)
[2025-05-11] MEDS: GABAPENTIN 100 MG CAP PO SCH (05:28)
[2025-05-11] MEDS: PIPERACILLIN-TAZOB 3.375GM 100 ML IV SCH ×2 (05:28→12:56)
[2025-05-11 07:44] LABS: Hematocrit 38.6 % (41.0-53.0); Hemoglobin 13.9 g/dL (13.5-17.5); Mean Corpuscular Hemoglobin 30.3 pg (28.0-32.0); Mean Corpuscular Volume 84.2 fL (80.0-100.0); Nucleated Red Blood Cells % 0.1 %
[2025-05-11 07:55] LABS: Anion Gap 11 (5-15); Carbon Dioxide 22 mmol/L (20-31); Chloride 106 mmol/L (98-107); Sodium 139 mmol/L (136-145)
[2025-05-11 07:56] LABS: Calcium 9.0 mg/dL (8.7-10.4)
[2025-05-11 07:59] LABS: Potassium 3.2 mmol/L (3.5-5.1)
[2025-05-11 08:01] LABS: BUN/Creatinine Ratio 8.2 (10.0-20.0)
[2025-05-11 08:03] LABS: Blood Urea Nitrogen 7 mg/dL (9-23); Glucose 114 mg/dL (74-106)
[2025-05-11] MEDS ORDERED: ACETAMINOPHEN 325 MG TAB PO PRN (08:45)
[2025-05-11] MEDS: ENOXAPARIN SOD 40 MG/0.4 ML SYRINGE SC SCH (09:17)
[2025-05-11] MEDS: PANTOPRAZOLE 40 MG TAB PO SCH (09:17)
[2025-05-11] MEDS: POTASSIUM EFFERVESENT TAB 25 MEQ PO ONE (09:17)
--- NOTE | 2025-05-11 09:39 | DVHINCON2 ---
Date of service: May 11, 2025 Reason for Consultation Perianal/Buttock abscess/phlegmon History of Present Illness History Source: Patient, MD Notes Exam Limitations: No limitations HPI 39 year old male presented to the ER with complaint of rectal pain. patient states he had several bowel movements of loose stool after eating a spicy food which caused irritation to the rectal area and became progressively worse over the past couple of days. Rectal perianal area burning pain 10/10. Home Meds Active Scripts Mupirocin Calcium (Topical) (MUPIROCIN) 2 % Cre, 2 % EX BID for 10 Days, #1 EA Prov:VICENTE HUSTON MD 12/24/24 Clindamycin Hcl (Clindamycin Hcl) 300 Mg Cap, 1 CAP PO BID for 10 Days, #20 CAP Prov:VICENTE HUSTON MD 12/24/24 Tramadol Hcl (Tramadol Hcl) 50 Mg Tab, 50 MG PO Q8HP PRN for 5 Days, #15 TAB 0 Refills Prov:MELBA SAHU [employer] SALES REPRESENTATIVE 11/07/24 Ibuprofen Micronized (Ibuprofen) 800 Mg Tab, 800 MG PO Q8HP PRN, #20 TAB Prov:FERNANDA MATHEWS PAC 05/13/24 Hydrocodone-Acetaminophen (Hydrocodone Bitartrate/AC 10-325 mg) 1 Tab Tab, 1 TAB PO Q8HP PRN, #15 TAB Prov:FERNANDA MATHEWS PAC 05/13/24 Past Medical History Cardiac: No pertinent Hx Pulmonary: No pertinent Hx Central Nervous System: No pertinent Hx GI: No pertinent Hx Hemotology/Oncology: No pertinent Hx Hepatobiliary: No pertinent Hx Psychiatric: No pertinent Hx Musculoskeletal: Chronic low back pain Rheumotologic: No pertinent Hx Infectious Disease: No peritnent Hx ENT: No pertinent Hx Renal/: No pertinent Hx Endocrine: No pertinent Hx Dermatology: No pertinent Hx Past Surgical History: No pertinent Hx Family History: No pertinent Hx Patient Family History: Diabetes mellitus G8 FATHER, Onset:Unknown Smoker: No Hx (Negative) Alocohol: None Drugs: Marijuana Lives with: With family Review of Systems Constitutional: No symptom reported Ears, Nose, & Throat: No symptom reported Eyes: No symptom reported Pulmonary/Respiratory: No symptom reported Cardiovascular: No symptom reported Genitourinary: No symptom reported Musculoskeletal: No symptom reported Skin: Other (swelling lower left buttock) Psychiatric: No symptom reported Endocrine: No symptom reported Hemotologic/Lymphatic: No symptom reported H&P Exam Vital Signs Vital Signs Date Time Temp Pulse Resp B/P (MAP) Pulse Ox O2 Delivery O2 Flow Rate FiO2 05/11/25 08:30 97.7 80 16 106/66 (79) 98 97.7 05/11/25 03:29 Room Air* 0 21 General Appeara: Well developed, Well nourished Head Exam: Normal inspection Neck Exam: Normal inspection, Non-tender Eye Exam: bilateral eye Normal inspection Nasal Exam: Normal inspection Mouth: Normal Inspection Pulmonary/Respiratory: Normal inspection Cardiovascular/Chest: Normal inspection, Regular rate Rectal Exam: Tenderness (lower left buttock ), Other Neuro/Mental St: Alert, Oriented Appearance: Appropriate appearance Eye contact/ Speech: Cooperative Thoughts/Psych: Normal thought pattern Labs/Xrays Labs Test 05/11/25 07:25 05/11/25 00:30 Range/Units White Blood Count 11.0 H 4.4-10.8 10^3/uL Red Blood Count 4.58 4.5-5.90 10^6/uL Hemoglobin 13.9 13.5-17.5 g/dL Hematocrit 38.6 L 41.0-53.0 % Mean Corpuscular Volume 84.2 80.0-100.0 fL Mean Corpuscular Hemoglobin 30.3 28.0-32.0 pg Mean Corpuscular Hemoglobin Concent 36.0 32.0-36.0 g/dL Red Cell Distribution Width 13.7 11.8-14.3 % Platelet Count 198 140-450 10^3/uL Mean Platelet Volume 8.4 6.9-10.8 fL Neutrophils (%) (Auto) 76.3 37.0-80.0 % Lymphocytes (%) (Auto) 13.6 10.0-50.0 % Monocytes (%) (Auto) 9.1 0.0-12.0 % Eosinophils (%) (Auto) 0.5 0.0-7.0 % Basophils (%) (Auto) 0.5 0.0-2.0 % Neutrophils # (Auto) 8.4 1.6-8.6 10 ^3/uL Lymphocytes # (Auto) 1.5 0.4-5.4 10 ^3/uL Monocytes # (Auto) 1.0 0-1.3 10 ^3/uL Eosinophils # (Auto) 0.1 0-0.8 10 ^3/uL Basophils # (Auto) 0.1 0-0.2 10 ^3/uL Nucleated Red Blood Cells 0.1 % Sodium Level 139 136-145 mmol/L Potassium Level 3.2 L 3.5-5.1 mmol/L Chloride Level 106 98-107 mmol/L Carbon Dioxide Level 22 20-31 mmol/L Anion Gap 11 5-15 Blood Urea Nitrogen 7 L 9-23 mg/dL Creatinine 0.85 0.700-1.30 mg/dL Glomerular Filtration Rate Calc 113 >90 mL/min BUN/Creatinine Ratio 8.2 L 10.0-20.0 Serum Glucose 114 H 74-106 mg/dL Calcium Level 9.0 8.7-10.4 mg/dL Influenza Type A Antigen Negative Negative Influenza Type B Antigen Negative Negative SARS-CoV-2 Antigen (Rapid) Negative NEGATIVE Assessment/Plan Problem List: (1) Rectal or anal pain (2) Phlegmon Plan patient complaint of left pain to the left lower buttock, area tender to palpation, some swelling labs reviewed WBC slightly elevated patient states pain progressively became worse after several bowel movements after eating spicy food which he believes irritated the rectal area IMPRESSION: Localized inflammation in the left perianal region suggestive of phlegmon. No abscess is identified. plan: Continue with IV antibiotics and warm compress patient to ambulate as tolerated Plan discussed with: Patient, Spouse, Other (Dr. Menard ) Visit Coding Surgery Date of Service if different f: May 11, 2025 Billing Provider: ANUP MENARD MD Surgery Visit Codes: 18218 - INP CONSULT <80 MIN FRED BASILIO NP May 11, 2025 09:39
[2025-05-11 10:41] LABS: Alanine Aminotransferase 71.0 U/L (7-40); Albumin 4.3 g/dL (3.2-4.8); Alkaline Phosphatase 68.0 U/L (46-116); Bilirubin, Total 1.0 mg/dL (0.2-1.0); Total Protein 6.5 g/dL (5.7-8.2)
[2025-05-11 10:47] LABS: Bilirubin, Direct 0.3 mg/dL (<0.3)
[2025-05-11 11:09] LABS: INR 1.08 (0.9-1.15); Partial Thromboplastin Time 35.6 SEC (24.5-34.5); Prothrombin Time 11.4 sec (9.3-11.8)
[2025-05-11 12:13] LABS: Urine Protein, UAD Negative (Negative)
[2025-05-11 12:14] LABS: Amphetamine Screen, Urine Neg (NEGATIVE); Barbiturate Scree,Urine Neg (NEGATIVE); Benzodiazephine Screen, Urine Neg (NEGATIVE); Cannabinoid Screen, Urine Pos (NEGATIVE); Cocaine Screen, Urine Neg (NEGATIVE); Opiate Scree,Urine Pos (NEGATIVE); Phencyclidine Screen, Urine Neg (NEGATIVE)
[2025-05-11] MEDS: ERGOCALCIFEROL 50,000 UNIT(1.25MG) CAP PO SCH (14:10)
--- NOTE | 2025-05-11 17:54 | DVHPNRES ---
Progress Note Date Seen: May 11, 2025 Resident Creating Document: FLYNN ZULETA RESIDENT Medical Necessity Reason Pt with a Central, PICC or Fol: No Subjective Review of Systems Patient is a 39-year-old male with past medical history of GERD, lumbar disc herniation, who came to the ED with chief complaints of 5 days of rectal pain which was 7/10 in intensity, continuous, burning like, that increased when walking and changing positions, is associated with chills and mild fever. patient states that 5 days ago he took 3 oz of tajin, which caused him to have 5 episodes of explosive diarrhea for which after the pain was 10/10 in his abdomen and rectal area. After that he had 1 episode of bloody bowel movement 3 days ago. Patient came complained of mild abdominal pain 5 days ago but which decreased after. He denies any recent travel, previous hemorrhoids, sick contacts. In the ED patient presented with tachycardia, elevated WBC. And abdomen / pelvis CT showed a localized inflammation of the left perianal region suggestive of a phlegmon. Patient will be admitted for antibiotic, pain control and further management. past surgical history: denies family history: reviewed and noncontributory personal history: Patient denies smoking, alcohol use, states marijuana use occasionally lives with: family PCP: Dr. Carlo Suresh 05/11/2025: patient seen at bedside. patient is alert x3, in mild distress and discomfort, due to but his pain in the rectum was. Patient last bowel movement was 2 days ago which was normal. his vitamin-D levels were low and vitamin D was supplemented. Surgery was consulted and recommended to continue IV antibiotics and give warm compress . patient was started on IV Zosyn, gabapentin, Protonix, Lovenox, [place] for pain. Constitutional: Denies weight loss, fever and chills. HEENT: Denies changes in vision and hearing. Respiratory: Denies shortness of breath and cough Cardiovascular: Denies chest discomfort or palpitations GI: Mild abdominal distention, reports improvement on abdominal discomfort. : Denies dysuria and urinary frequency. Musculoskeletal: Denies myalgias and joint pain Skin: Denies rash and pruritus. Neurological: Denies dizziness, headache, vision or hearing problems Objective vital signs Vital Sign Date Time Temp Pulse Resp B/P (MAP) Pulse Ox O2 Delivery O2 Flow Rate FiO2 05/11/25 16:54 98.4 81 16 116/73 (87) 99 98.4 05/11/25 08:30 Room Air* 0 21 Total Intake and Output 05/10/25 05/10/25 05/11/25 15:00 23:00 07:00 Intake Total 100 ml 0 ml Balance 100 ml 0 ml medications Current Medications Medications Dose Ordered Sig/Froilan Route Start Time Stop Time Status Last Admin Dose Admin Acetaminophen/ Hydrocodone Bitart 1 tab Q4HP PRN PO 05/10/25 22:30 05/11/25 14:10 1 TAB Ondansetron HCl 4 mg Q4HP PRN IV 05/10/25 22:30 Morphine Sulfate 2 mg Q4HPRN PRN IV 05/10/25 22:30 05/11/25 02:44 2 MG Enoxaparin Sodium 40 mg DAILY SC 05/11/25 10:00 05/11/25 09:17 40 MG Pantoprazole Sodium 40 mg DAILY PO 05/11/25 10:00 05/11/25 09:17 40 MG Gabapentin 100 mg TID PO 05/11/25 06:00 05/11/25 14:09 100 MG Sodium Chloride 1,000 ml @ 100 mls/hr Q10H IV 05/11/25 02:00 05/11/25 03:30 100 MLS/HR Ketorolac Tromethamine 30 mg Q6HPRN PRN IV 05/11/25 02:00 05/16/25 01:59 Hold Acetaminophen 650 mg Q6HP PRN PO 05/11/25 08:45 Piperacillin Sod/ Tazobactam Sod 100 ml @ 25 mls/hr Q6HR IV 05/11/25 12:00 05/11/25 12:56 25 MLS/HR Ergocalciferol 50,000 unit Q7D PO 05/11/25 13:45 05/11/25 14:10 50,000 UNIT Examination General: Patient alert and oriented in person, place and time. Patient following commands. HEENT: Normocephalic, atraumatic, moist mucous membranes Respiratory/pulmonary: Clear lungs bilaterally, vesicular murmurs present in almost all lung pope, no associated crackles or wheezes. Cardiovascular: Normal heart sounds S1 and S2 with no associated murmurs Abdomen: Abdomen nondistended, there is no pain to palpation in any of the abdominal quadrants, no palpable masses. Obese abdomen Extremities: There is no peripheral edema present at the lower extremities. Peripheral Pulses: 3+ Radial (R). 3+ Radial (L). 3+ Dorsalis pedis (R). 3+ Dorsalis pedis(L) Skin: No rashes or pruritus, there is no sacral edema present at this time. Neurological: Intact cranial nerves with no focal neurologic deficits rectal exam: was done with nurse as a transliterator, no internal or external hemorrhoids were palpated, patient had a lump on the left perianal region, no drainage seen laboratory and microbiology Laboratory Tests 05/11/25 07:25 Test 05/11/25 07:25 Range/Units Serum Glucose 114 H 74-106 mg/dL Labs and/or images reviewed: Labs reviewed by me, Image(s) reviewed by me Problem List/Assessment/Plan Problem List/Assessment/Plan # sepsis due to possible perianal abscess # intractable perianal pain # rule out perianal phlegmon #acute diarrhea likely gastroenteritis - infectious etiology - patient was given IV fluids -IV Zosyn started -morphine 2 mg IV for pain -IV Zofran -blood culture ordered - surgery was consulted, stated that to continue IV antibiotics and give warm compress. #Transamnitis likely LAURENT monitor # history of GERD - pantoprazole 40 mg p.o. given # vitamin-D deficiency - vitamin-D 5000 units per week given #Obesity BMI 31.8 -patient advised on regular exercise, diet, weight loss for more than 10 minutes # polysubstance abuse disorder -patient was counseled on cessation of marijuana for over 17 minutes PPI prophylaxis: Protonix 40 mg DVT prophylaxis: Ambulatory Goals of care addressed with the patient for more than 27 minutes: Full code status Case discussed with , patient and nurse Plan discussed with: Patient, Other () My Orders My Orders Orders - FLYNN ZULETA RESIDENT Procedure Category Date Status Time Ergocalciferol PHA 05/11/25 In Process (Vitamin D 50,000 13:45 Date of Service: May 11, 2025 Billing Provider: RICHARD MARTINEZ MD Common Visit Codes: [id number] INP/OBS CARE(HIGH) FLYNN ZULETA RESIDENT May 11, 2025 17:54 CR GAY RESIDENT May 11, 2025 20:12 RICHARD MARTINEZ MD May 11, 2025 23:52
[2025-05-12] VITALS (7 sets, daily range): BP systolic 107–131; BP diastolic 69–88; PULSE 81–86; RESP 18–20; TEMP 97.5–99; O2SAT 96–100
[2025-05-12 06:38] LABS: Hematocrit 38.2 % (41.0-53.0); Hemoglobin 13.7 g/dL (13.5-17.5); Mean Corpuscular Hemoglobin 30.5 pg (28.0-32.0); Mean Corpuscular Volume 85.3 fL (80.0-100.0); Nucleated Red Blood Cells % 0.0 %
[2025-05-12 06:59] LABS: Chloride 105 mmol/L (98-107); Potassium 4.0 mmol/L (3.5-5.1); Sodium 138 mmol/L (136-145)
[2025-05-12 07:00] LABS: Anion Gap 7 (5-15); Calcium 9.0 mg/dL (8.7-10.4); Carbon Dioxide 26 mmol/L (20-31)
[2025-05-12 07:05] LABS: BUN/Creatinine Ratio 6.7 (10.0-20.0); Glucose 112 mg/dL (74-106)
[2025-05-12 07:06] LABS: Blood Urea Nitrogen 6 mg/dL (9-23)
--- NOTE | 2025-05-12 15:07 | DVHPN2 ---
Subjective The patient seen and examined at bedside. Patient said he passed something look like pus or clots. He showed me in the bedpan. Reviewed: Care Plan, H&P, Labs, Medications, Previous Orders, Radiology Changes from previous H/P or p: No Changes Eyes: No Pain, No Vision change, No Conjunctivae inflammation, No Eyelid inflammation, No Other, No Redness ENT: No Ear pain, No Ear discharge, No Nose pain, No Nose discharge, No Nose congestion, No Mouth pain, No Mouth swelling, No Throat pain, No Throat swelling, No Other Cardiovascular: No Chest Pain, No Palpitations, No Orthopnea, No Paroxysmal Noc. Dyspnea, No Edema, No Lt Headedness, No Other Respiratory: No Cough, No Dry, No Shortness of breath, No SOB with excertion, No Wheezing, No Hemoptysis, No Pleuritic Pain, No Sputum, No Other Gastrointestinal: Nausea; No Vomiting, No Abdominal Pain; Diarrhea; No Constipation, No Melena, No Hematochezia; Other (Perianal pain.) Genitourinary: No Dysuria, No Frequency, No Incontinence, No Hematuria, No Retention, No Other Musculoskeletal: No other, No neck pain, No shoulder pain, No arm pain, No back pain, No hand pain, No leg pain, No foot pain Skin: No Rash, No Lesions, No Jaundice, No Bruising, No Other Objective Vitals Vital Signs Date Time Temp Pulse Resp B/P (MAP) Pulse Ox O2 Delivery O2 Flow Rate FiO2 05/12/25 13:00 99.0 85 18 124/82 (96) 99 99.0 05/12/25 08:00 Room Air* 0 21 Intake/Output Intake and Output 05/12/25 07:00 Intake Total 2050 ml Output Total 1200 ml Balance 850 ml Intake Oral 1450 ml IV Total 600 ml Output Urine Total 1200 ml Stool Total 0 ml General Appearance: Alert, Oriented X3, Cooperative, No acute distress HEENT: Atraumatic, PERRLA, EOMI, Mucous membr. moist/pink Neck: Supple Lungs: Clear to auscultation, Normal air movement Cardiovascular: Regular rate, Normal S1, Normal S2, No murmurs, Gallops, Rubs Abdomen: Normal bowel sounds, Soft, No tenderness Neuro: Cranial nerves 3-12 NL Psych/Mental Status: Mental status NL Medications Current Medications Medications Dose Ordered Sig/Froilan Route Start Time Stop Time Status Last Admin Dose Admin Acetaminophen/ Hydrocodone Bitart 1 tab Q4HP PRN PO 05/10/25 22:30 05/12/25 02:45 1 TAB Ondansetron HCl 4 mg Q4HP PRN IV 05/10/25 22:30 Morphine Sulfate 2 mg Q4HPRN PRN IV 05/10/25 22:30 05/12/25 11:23 2 MG Enoxaparin Sodium 40 mg DAILY SC 05/11/25 10:00 05/12/25 08:56 40 MG Pantoprazole Sodium 40 mg DAILY PO 05/11/25 10:00 05/12/25 08:53 40 MG Gabapentin 100 mg TID PO 05/11/25 06:00 05/12/25 14:14 100 MG Sodium Chloride 1,000 ml @ 100 mls/hr Q10H IV 05/11/25 02:00 05/12/25 07:35 100 MLS/HR Ketorolac Tromethamine 30 mg Q6HPRN PRN IV 05/11/25 02:00 05/16/25 01:59 Hold Acetaminophen 650 mg Q6HP PRN PO 05/11/25 08:45 Piperacillin Sod/ Tazobactam Sod 100 ml @ 25 mls/hr Q6HR IV 05/11/25 12:00 05/12/25 11:22 25 MLS/HR Ergocalciferol 50,000 unit Q7D PO 05/11/25 13:45 05/11/25 14:10 50,000 UNIT Laboratory Results Laboratory Tests 05/12/25 05:44 Chemistry Test 05/12/25 05:44 Calcium Level 9.0 mg/dL (8.7-10.4) Urinalysis Test 05/11/25 11:25 Urine Color Light-yellow (Yellow) Urine Clarity Clear (Clear) Urine pH 7.0 (5.0-9.0) Urine Specific [place] 1.018 (1.001-1.035) Urine Protein Negative (Negative) Urine Ketones Negative (Negative) Urine Blood Negative /uL (Negative) Urine Nitrite Negative (Negative) Urine Bilirubin Negative (Negative) Urine Urobilinogen 2 mg/dL (Negative) H Urine Leukocyte Esterase Negative /uL (Negative) Urine RBC 2 /hpf (0 - 3) Urine Microscopic WBC < 1 /HPF (0-3) Urine Squamous Epithelial Cells None seen /hpf (<5) Urine Bacteria None seen /hpf (None Seen) Urine Glucose Normal mg/dL (Normal) Microbiology Microbiology Date/Time Source Procedure Growth Status 05/11/25 10:38 Blood Blood Culture - Preliminary NO GROWTH AFTER 24 HOURS OF INCUBATION. Resulted Labs and/or images reviewed: Labs reviewed by me Assessment/Plan Assessment/Plan # sepsis due to possible perianal abscess # intractable perianal pain # rule out perianal phlegmon #acute diarrhea likely gastroenteritis - infectious etiology - patient was given IV fluids -IV Zosyn started -morphine 2 mg IV for pain -IV Zofran -blood culture ordered - surgery was consulted, stated that to continue IV antibiotics and give warm compress. #Transamnitis likely LAURENT monitor # history of GERD - pantoprazole 40 mg p.o. given # vitamin-D deficiency - vitamin-D 5000 units per week given #Obesity BMI 31.8 -patient advised on regular exercise, diet, weight loss for more than 10 minutes # polysubstance abuse disorder -patient was counseled on cessation of marijuana for over 17 minutes PPI prophylaxis: Protonix 40 mg DVT prophylaxis: Ambulatory Plan discussed with: Patient Date of Service: May 12, 2025 Billing Provider: RICHARD MARTINEZ MD Common Visit Codes: [id number] INP/OBS CARE(HIGH) RICHARD MARTINEZ MD May 12, 2025 15:07
[2025-05-13] VITALS (8 sets, daily range): BP systolic 104–136; BP diastolic 71–89; PULSE 72–84; RESP 16–19; TEMP 97.5–98.4; O2SAT 96–99
--- NOTE | 2025-05-13 17:29 | DVHPNRES ---
Progress Note Date Seen: May 13, 2025 Resident Creating Document: FLYNN ZULETA RESIDENT Medical Necessity Reason Pt with a Central, PICC or Fol: No Subjective Review of Systems Patient is a 39-year-old male with past medical history of GERD, lumbar disc herniation, who came to the ED with chief complaints of 5 days of rectal pain which was 7/10 in intensity, continuous, burning like, that increased when walking and changing positions, is associated with chills and mild fever. patient states that 5 days ago he took 3 oz of tajin, which caused him to have 5 episodes of explosive diarrhea for which after the pain was 10/10 in his abdomen and rectal area. After that he had 1 episode of bloody bowel movement 3 days ago. Patient came complained of mild abdominal pain 5 days ago but which decreased after. He denies any recent travel, previous hemorrhoids, sick contacts. In the ED patient presented with tachycardia, elevated WBC. And abdomen / pelvis CT showed a localized inflammation of the left perianal region suggestive of a phlegmon. Patient will be admitted for antibiotic, pain control and further management. past surgical history: denies family history: reviewed and noncontributory personal history: Patient denies smoking, alcohol use, states marijuana use occasionally lives with: family PCP: Dr. Carlo Suresh 05/11/2025: patient seen at bedside. patient is alert x3, in mild distress and discomfort, due to but his pain in the rectum was. Patient last bowel movement was 2 days ago which was normal. his vitamin-D levels were low and vitamin D was supplemented. Surgery was consulted and recommended to continue IV antibiotics and give warm compress . patient was started on IV Zosyn, gabapentin, Protonix, Lovenox, [place] for pain. 05/13/25 Patient seen at bedside patient is alert x3, in no distress, says he feels a lot better. States 3/10 rectal pain but says he had a regular bowel movement which was soft. But did notice blood in his tissue when he wiped. size of Rectal mass has reduced, he states that there was pus and blood yesterday in his stool. Continue to give warm compresses, and antibiotics. Objective vital signs Vital Sign Date Time Temp Pulse Resp B/P (MAP) Pulse Ox O2 Delivery O2 Flow Rate FiO2 05/13/25 16:40 97.5 84 16 104/71 (82) 98 97.5 05/13/25 08:00 Room Air* 0 21 Total Intake and Output 05/12/25 05/12/25 05/13/25 15:00 23:00 07:00 Intake Total 1050 ml 700 ml 920 ml Output Total 750 ml Balance 1050 ml 700 ml 170 ml medications Current Medications Medications Dose Ordered Sig/Froilan Route Start Time Stop Time Status Last Admin Dose Admin Acetaminophen/ Hydrocodone Bitart 1 tab Q4HP PRN PO 05/10/25 22:30 05/13/25 04:04 1 TAB Ondansetron HCl 4 mg Q4HP PRN IV 05/10/25 22:30 Morphine Sulfate 2 mg Q4HPRN PRN IV 05/10/25 22:30 05/12/25 22:12 2 MG Enoxaparin Sodium 40 mg DAILY SC 05/11/25 10:00 05/13/25 09:10 40 MG Pantoprazole Sodium 40 mg DAILY PO 05/11/25 10:00 05/13/25 09:09 40 MG Gabapentin 100 mg TID PO 05/11/25 06:00 05/13/25 13:45 100 MG Sodium Chloride 1,000 ml @ 100 mls/hr Q10H IV 05/11/25 02:00 05/12/25 19:41 100 MLS/HR Ketorolac Tromethamine 30 mg Q6HPRN PRN IV 05/11/25 02:00 05/16/25 01:59 Hold Acetaminophen 650 mg Q6HP PRN PO 05/11/25 08:45 Piperacillin Sod/ Tazobactam Sod 100 ml @ 25 mls/hr Q6HR IV 05/11/25 12:00 05/13/25 12:12 25 MLS/HR Ergocalciferol 50,000 unit Q7D PO 05/11/25 13:45 05/11/25 14:10 50,000 UNIT Examination General: Patient alert and oriented in person, place and time. Patient following commands. HEENT: Normocephalic, atraumatic, moist mucous membranes Respiratory/pulmonary: Clear lungs bilaterally, vesicular murmurs present in almost all lung pope, no associated crackles or wheezes. Cardiovascular: Normal heart sounds S1 and S2 with no associated murmurs Abdomen: Abdomen nondistended, there is no pain to palpation in any of the abdominal quadrants, no palpable masses. Obese abdomen Extremities: There is no peripheral edema present at the lower extremities. Peripheral Pulses: 3+ Radial (R). 3+ Radial (L). 3+ Dorsalis pedis (R). 3+ Dorsalis pedis(L) Skin: No rashes or pruritus, there is no sacral edema present at this time. Neurological: Intact cranial nerves with no focal neurologic deficits rectal exam: was done with nurse as a wafer batter mixer, no internal or external hemorrhoids were palpated, patient had a lump on the left perianal region, no drainage seen laboratory and microbiology Laboratory Tests 05/12/25 05:44 Test 05/12/25 05:44 Range/Units Serum Glucose 112 H 74-106 mg/dL Microbiology Date/Time Source Procedure Growth Status 05/11/25 10:38 Blood Blood Culture - Preliminary NO GROWTH AFTER 48 HOURS OF INCUBATION. Resulted Problem List/Assessment/Plan Problem List/Assessment/Plan # sepsis due to possible perianal abscess # intractable perianal pain # rule out perianal phlegmon #acute diarrhea likely gastroenteritis - infectious etiology - patient was given IV fluids -IV Zosyn started -morphine 2 mg IV for pain -IV Zofran -blood culture ordered - surgery was consulted, stated that to continue IV antibiotics and give warm compress. #Transamnitis likely LAURENT monitor # history of GERD - pantoprazole 40 mg p.o. given # vitamin-D deficiency - vitamin-D 5000 units per week given #Obesity BMI 31.8 -patient advised on regular exercise, diet, weight loss for more than 10 minutes # polysubstance abuse disorder -patient was counseled on cessation of marijuana for over 17 minutes PPI prophylaxis: Protonix 40 mg DVT prophylaxis: Ambulatory Goals of care addressed with the patient for more than 27 minutes: Full code status Case discussed with , patient and nurse Plan discussed with: Patient, Other (RN) Dietary Evaluation Review Comments: 1) Continue regular diet. Encourage optimal PO intake 2) Refer to outpatient RD for weight management 3) Follow-up with gastroenterology 4) Follow-up with school social worker r/t polysubstance abuse 5) Continue to monitor I&O, labs, and skin integrity Expected Outcomes/Goals: 1) appetite and labs to improve 2) gradual wt loss 3) f/u in 3-5 days Date of Service: May 13, 2025 Billing Provider: RICHARD MARTINEZ MD Common Visit Codes: [id number] INP/OBS CARE(HIGH) FLYNN ZULETA RESIDENT May 13, 2025 17:29 RICHARD MARTINEZ MD May 14, 2025 09:59
[2025-05-14 01:00] VITALS: BP 128/88; PULSE 63; RESP 17; TEMP 97.8; O2SAT 98
[2025-05-14 05:00] VITALS: BP 136/87; PULSE 67; RESP 17; TEMP 98.1; O2SAT 99
[2025-05-14 08:00] VITALS: PULSE 72; RESP 17; O2SAT 100
[2025-05-14 08:46] VITALS: BP 130/81; PULSE 76; RESP 17; TEMP 97.8; O2SAT 100
[2025-05-14 09:01] LABS: Hematocrit 39.4 % (41.0-53.0); Hemoglobin 14.0 g/dL (13.5-17.5); Mean Corpuscular Hemoglobin 30.2 pg (28.0-32.0); Mean Corpuscular Volume 85.2 fL (80.0-100.0); Nucleated Red Blood Cells % 0.0 %
[2025-05-14 09:05] LABS: Potassium 3.5 mmol/L (3.5-5.1); Sodium 143 mmol/L (136-145)
[2025-05-14 09:06] LABS: Anion Gap 10 (5-15); Calcium 9.3 mg/dL (8.7-10.4); Carbon Dioxide 24 mmol/L (20-31)
[2025-05-14 09:11] LABS: Glucose 89 mg/dL (74-106)
[2025-05-14 09:14] LABS: BUN/Creatinine Ratio 6.7 (10.0-20.0); Blood Urea Nitrogen < 5 mg/dL (9-23); Chloride 109 mmol/L (98-107)
[2025-05-14 11:17] VITALS: BP 130/81; PULSE 76; RESP 17; TEMP 97.8; O2SAT 100
--- NOTE | 2025-05-14 11:21 | DVHDSRES ---
Discharge Summary Date of Admission Resident Creating Document: FLYNN ZULETA May 10, 2025 at 22:20 Date of Discharge: May 14, 2025 Admitting Diagnosis # sepsis due to possible perianal abscess Labs/Diagnostic Data: Laboratory Results Test 05/14/25 07:23 05/13/25 03:26 05/11/25 11:25 05/11/25 07:25 White Blood Count 4.9 10^3/uL (4.4-10.8) Red Blood Count 4.62 10^6/uL (4.5-5.90) Hemoglobin 14.0 g/dL (13.5-17.5) Hematocrit 39.4 % (41.0-53.0) Mean Corpuscular Volume 85.2 fL (80.0-100.0) Mean Corpuscular Hemoglobin 30.2 pg (28.0-32.0) Mean Corpuscular Hemoglobin Concent 35.5 g/dL (32.0-36.0) Red Cell Distribution Width 14.0 % (11.8-14.3) Platelet Count 243 10^3/uL (140-450) Mean Platelet Volume 8.7 fL (6.9-10.8) Neutrophils (%) (Auto) 52.2 % (37.0-80.0) Lymphocytes (%) (Auto) 35.7 % (10.0-50.0) Monocytes (%) (Auto) 8.0 % (0.0-12.0) Eosinophils (%) (Auto) 3.3 % (0.0-7.0) Basophils (%) (Auto) 0.8 % (0.0-2.0) Neutrophils # (Auto) 2.6 10 ^3/uL (1.6-8.6) Lymphocytes # (Auto) 1.7 10 ^3/uL (0.4-5.4) Monocytes # (Auto) 0.4 10 ^3/uL (0-1.3) Eosinophils # (Auto) 0.2 10 ^3/uL (0-0.8) Basophils # (Auto) 0 10 ^3/uL (0-0.2) Nucleated Red Blood Cells 0.0 % Sodium Level 143 mmol/L (136-145) Potassium Level 3.5 mmol/L (3.5-5.1) Chloride Level 109 mmol/L (98-107) Carbon Dioxide Level 24 mmol/L (20-31) Anion Gap 10 (5-15) Blood Urea Nitrogen < 5 mg/dL (9-23) Creatinine 0.75 mg/dL (0.700-1.30) Glomerular Filtration Rate Calc 117 mL/min (>90) BUN/Creatinine Ratio 6.7 (10.0-20.0) Serum Glucose 89 mg/dL (74-106) Calcium Level 9.3 mg/dL (8.7-10.4) Stool Occult Blood Negative (Negative) Stool Occult Blood Sample #3 (Negative) Stool for White Cells None seen Urine Color Light-yellow (Yellow) Urine Clarity Clear (Clear) Urine pH 7.0 (5.0-9.0) Urine Specific [place] 1.018 (1.001-1.035) Urine Protein Negative (Negative) Urine Ketones Negative (Negative) Urine Blood Negative /uL (Negative) Urine Nitrite Negative (Negative) Urine Bilirubin Negative (Negative) Urine Urobilinogen 2 mg/dL (Negative) Urine Leukocyte Esterase Negative /uL (Negative) Urine RBC 2 /hpf (0 - 3) Urine Microscopic WBC < 1 /HPF (0-3) Urine Squamous Epithelial Cells None seen /hpf (<5) Urine Bacteria None seen /hpf (None Seen) Urine Glucose Normal mg/dL (Normal) Urine Opiates Screen Pos (NEGATIVE) Urine Fentanyl Screen Neg (NEGATIVE) Urine Barbiturates Screen Neg (NEGATIVE) Urine Phencyclidine Screen Neg (NEGATIVE) Urine Amphetamines Screen Neg (NEGATIVE) Urine Benzodiazepines Screen Neg (NEGATIVE) Urine Cocaine Screen Neg (NEGATIVE) Urine Cannabinoids Screen Pos (NEGATIVE) Erythrocyte Sedimentation Rate 58 mm/hr (0-20) Prothrombin Time 11.4 sec (9.3-11.8) Prothrombin Time INR 1.08 (0.9-1.15) Activated Partial Thromboplast Time 35.6 SEC (24.5-34.5) Hemoglobin A1c 5.1 % A1C (<5.7) Total Bilirubin 1.0 mg/dL (0.2-1.0) Direct Bilirubin 0.3 mg/dL (<0.3) Aspartate Amino Transferase (AST) 57 U/L (13-40) Alanine Aminotransferase (ALT) 71 U/L (7-40) Alkaline Phosphatase 68 U/L (46-116) C-Reactive Protein High Sensitivity 13.18 mg/dL (<1.0) Total Protein 6.5 g/dL (5.7-8.2) Albumin 4.3 g/dL (3.2-4.8) Vitamin B12 Level 704 pg/mL (211-911) Vitamin D 25-Hydroxy 16.4 ng/mL (30.0-100) Thyroid Stimulating Hormone (TSH) 3.43 uIU/mL (0.55-4.78) Test 05/11/25 00:30 Influenza Type A Antigen Negative (Negative) Influenza Type B Antigen Negative (Negative) SARS-CoV-2 Antigen (Rapid) Negative (NEGATIVE) Other Laboratory Tests 05/14/25 07:23 Brief Hx & Hospital Course: Patient is a 39-year-old male with past medical history of GERD, lumbar disc herniation, who came to the ED with chief complaints of 5 days of rectal pain which was 7/10 in intensity, continuous, burning like, that increased when walking and changing positions, is associated with chills and mild fever. patient states that 5 days ago he took 3 oz of tajin, which caused him to have 5 episodes of explosive diarrhea for which after the pain was 10/10 in his abdomen and rectal area. After that he had 1 episode of bloody bowel movement 3 days ago. Patient came complained of mild abdominal pain 5 days ago but which decreased after. He denies any recent travel, previous hemorrhoids, sick contacts. In the ED patient presented with tachycardia, elevated WBC. And abdomen / pelvis CT showed a localized inflammation of the left perianal region suggestive of a phlegmon. Patient will be admitted for antibiotic, pain control and further management. past surgical history: denies family history: reviewed and noncontributory personal history: Patient denies smoking, alcohol use, states marijuana use occasionally lives with: family PCP: Dr. Carlo Suresh brief hospital course: Patient came to the hospital with possible sepsis due to perianal abscess, intractable perianal pain and presence of perianal phlegmon, and acute diarrhea likely gastroenteritis, infectious etiology for which patient was given IV fluids, Was started on IV Zosyn morphine 2 mg IV was given for pain. Blood cultures were ordered and result was unremarkable. IV Zofran was given for nausea. Surgery was consulted and stated to continue IV antibiotics and give warm compresses. Gabapentin was given, patient had [place] for pain. Patient had vitamin-D deficiency for which vitamin-D 5000 units per week was given. patient had transaminitis likely LAURENT and labs were monitored. Patient had history of GERD for which pantoprazole 40 mg p.o. given. For patient's obesity with BMI of 31.8 patient was advised on regular exercise lifestyle modifications, diet, weight loss for more than 11 minutes. For patient's polysubstance abuse disorder patient was counseled on cessation of marijuana for over 17 minutes. Patient is stable for discharge, states that his pain has improved and he can move around, the left perianal mass has decreased in size. Patient communicated understanding of his discharge plan and agreed. General: Patient alert and oriented in person, place and time. Patient following commands. HEENT: Normocephalic, atraumatic, moist mucous membranes Respiratory/pulmonary: Clear lungs bilaterally, vesicular murmurs present in almost all lung pope, no associated crackles or wheezes. Cardiovascular: Normal heart sounds S1 and S2 with no associated murmurs Abdomen: Abdomen nondistended, there is no pain to palpation in any of the abdominal quadrants, no palpable masses. Obese abdomen Extremities: There is no peripheral edema present at the lower extremities. Peripheral Pulses: 3+ Radial (R). 3+ Radial (L). 3+ Dorsalis pedis (R). 3+ Dorsalis pedis(L) Skin: No rashes or pruritus, there is no sacral edema present at this time. Neurological: Intact cranial nerves with no focal neurologic deficits Rectal exam: was done with nurse as a necktie maker, no internal or external hemorrhoids were palpated, patient had a lump on the left perianal region, no drainage seen Discharge instructions: Patient is to take Levaquin 500 mg p.o. for 5 days Lifestyle modifications, weight loss, exercise Avoid spicy foods Warm compresses to perianal region Operations or Procedures ORDERING PHYSICIAN: FERNANDA MATHEWS PAC PROCEDURE(s): ABPLIV - CT AB PEL WITH IV CON ONLY REASON: Abscess formation on the right gluteal region/rectum ORDER NUMBER(s): [id number], ACCESSION NUMBER(s): [id number] COMPUTERIZED TOMOGRAPHY ABDOMEN AND PELVIS WITH CONTRAST REASON FOR EXAM: Abscess formation on the right gluteal region/rectum COMPARISON: None TECHNIQUE: The exam was performed on a Multidetector scanner. Spiral scans were acquired from the diaphragm to the symphysis pubis after administration of IV contrast. 2-D coronal and sagittal reformatted images were provided. Radiation optimization: All CT scans at this facility use at least one of these dose optimization techniques: Automated exposure control mA and/or kV adjustment per patient size (includes targeted exams where dose is matched to clinical indication) or iterative reconstruction. CONTRAST ADMINISTRATION: 85 mL omnipaque 300 intravenously RADIATION DOSE: CTDI: 20.45 mGy DLP: 1362.93 mGy-cm FINDINGS: The visualized lung bases are grossly clear. There is no pleural effusion. There is no pericardial effusion. The spleen is not enlarged. The liver is normal in size and contour. The hepatic veins are patent. The portal vein is patent. No calcified gallstone is identified. There is no pericholecystic edema. The pancreas is unremarkable. The adrenal glands are normal. The kidneys enhance symmetrically. There is no solid renal mass. There is no hydronephrosis of either kidney. There is no abdominal aortic aneurysm. No pathologic lymphadenopathy is identified by size criteria. There is no free fluid in the abdomen or pelvis. The prostate is enlarged. The urinary bladder is unremarkable. There is no significant colonic stool burden. The appendix is normal. There is no distention of the small bowel. There is skin thickening and subcutaneous fat stranding in the left perianal region. No fluid collection is identified. The inflammatory change appears limited to the perianal region and does not ascend to the level of the levator ani muscles no acute osseous abnormality is identified. There is a metallic density in the anterior left thigh musculature with the appearance of a retained projectile. IMPRESSION: Localized inflammation in the left perianal region suggestive of phlegmon. No abscess is identified. ATED BY: KUNAL ROBLERO MD DICTATED DATE/TIME: 05/10/251847 SIGNED BY: KUNAL ROBLERO MD SIGNED DATE/TIME: 05/10/251847 CC: Condition at Discharge: Stable Final Diagnosis/Problems List # sepsis due to possible perianal abscess # intractable perianal pain # ruled in perianal phlegmon #acute diarrhea likely gastroenteritis - infectious etiology #Transamnitis likely LAURENT # history of GERD # vitamin-D deficiency #Obesity BMI 31.8 # polysubstance abuse disorder Discharge Disposition: Home Discharge Instruct/Medications Diet: Regular Activity: No Restrictions, As Tolerated Follow Up/Referral: Follow-up With discharge Clinic in 1 week Follow-up with PCP in 1-2 weeks Medications: Take Levaquin 500 mg for 5 days Scheduled Clindamycin Hcl (Clindamycin Hcl), 1 CAP PO BID Mupirocin Calcium (Topical) (Mupirocin), 2 % EX BID Scheduled PRN Hydrocodone-Acetaminophen (Hydrocodone Bitartrate/AC 10-325 mg), 1 TAB PO Q8HP PRN Ibuprofen Micronized (Ibuprofen), 800 MG PO Q8HP PRN Tramadol Hcl (Tramadol Hcl), 50 MG PO Q8HP PRN Discharge Statement: "Patient was advised to return to the ER or call 911 if any headaches, dizziness, shortness of breath, chest pain, abdominal pain, bleeding, fevers, or worsening of medical condition. Patient was counseled about treatment plan, medications, possible side effects, patientverbalized understanding. All questions were answered to the best of my ability. This discharge took greater then 30 minutes in planning, reviewing documentation, counseling the patient, and discussing with other team members." ASSESSMENT ASSESSMENT Assessment # sepsis due to possible perianal abscess FLYNN ZULETA RESIDENT May 14, 2025 11:21
[2025-05-14] MEDS ORDERED: ERGO1CAP23 PO (11:38)
[2025-05-14] MEDS ORDERED: LEVO500T91 PO (11:38)
== END 2025-05-14 12:21 | disposition home or self-care (01) | DRG 720 ==
LOC: ER 14:58 → OVERFLOW 22:20 → CENTRAL 05-11 03:15
PROVIDERS: ADMIT Student in an Organized Health Care Education/Training Program; ATTEND Student in an Organized Health Care Education/Training Program
DX: A41.9 Sepsis, unspecified organism (principal); K75.81 Nonalcoholic steatohepatitis (NASH); K61.0 Anal abscess; K62.89 Other specified diseases of anus and rectum; Z20.822 Contact with and (suspected) exposure to COVID-19; A09 Infectious gastroenteritis and colitis, unspecified; R74.01 Elevation of levels of liver transaminase levels; E55.9 Vitamin D deficiency, unspecified; F19.10 Other psychoactive substance abuse, uncomplicated; G89.29 Other chronic pain; K21.9 Gastro-esophageal reflux disease without esophagitis; E66.01 Morbid (severe) obesity due to excess calories; Z68.31 Body mass index [BMI] 31.0-31.9, adult; Z83.3 Family history of diabetes mellitus; Z79.899 Other long term (current) drug therapy; Z79.2 Long term (current) use of antibiotics; Z79.1 Long term (current) use of non-steroidal anti-inflammatories (NSAID)
CPT/HCPCS: 36415; 74177; 80048; 80076; 80307; 81001; 82270; 82306; 82607; 83036; 84443; 85025; 85048; 85610; 85652; 85730; 86141; 87040; 87426; 87804; 96365; 96375; 96376; G0378; J2405; J2543